=== PATIENT | female | born 1995 | race Two or more races ===

== ENCOUNTER 2019-07-06 22:03 | Emergency (ER) | payer SELFPAY ==
[~2019-07-06] VITALS: Ht 162.6 cm; Wt 65.0 kg
[2019-07-06] MEDS ORDERED: DIPHENHYDRAMINE 25MG CAPSULE PO ONE (23:45)
[2019-07-07 00:03] VITALS: BP 132/56
== END 2019-07-07 00:04 | disposition home or self-care (01) ==
LOC: ER 22:03
DX: R21 Rash and other nonspecific skin eruption (principal); Z63.8 Other specified problems related to primary support group
CPT/HCPCS: 99283; Q0163